=== PATIENT | male | born 1980 ===

== ENCOUNTER 2023-08-03 13:30 | Outpatient (AMB) | payer OTHER, SELFPAY ==
[2023-08-03 13:51] VITALS: BP 132/82; PULSE 76; O2SAT 98; BMI 24.7
--- NOTE | 2023-08-03 13:51 | MHC.PC.OV ---
Vital Signs 08/03/23 13:51 Height 5 ft 7 in Weight 157 lb 8 oz BMI 24.7 BP 132/82 Blood Pressure Location Lt brachial Position Sitting Pulse 76 Pulse Source Pulse Oximeter Pulse Oximetry (%) 98 Oxygen Delivery Method Room Air Intake Visit Reasons: New patient-Asthma Intake Note: Patient is a new patient here to establish care for Asthma. Medical record have been requested and will be mailed to the practice. Picture Framer Required: No Accompanied by: Self / Same As Patient Allergies No Known Allergies Allergy (Verified 06/01/24 13:34) Medication List - Last Reconciled 08/03/23 by Naeem Bird MD albuterol sulfate 90 mcg/actuation 2 puffs inhalation Q6H PRN buprenorphine-naloxone 4-1 mg (Suboxone) 1 film sublingual DAILY clonazepam 0.25 mg PO BEDTIME PRN fluoxetine 20 mg PO DAILY Tobacco use date assessed: 08/03/23 Dental Screening Dental Screen Date: 08/03/23 Did you have a dental visit in the last 12 months?: No Did you have a dental problem in the last 6 months where you did not have access to dental care?: No Was dental information given to patient?: Patient has dentist HPI New patient-Asthma HPI Details Patient comes in today to establish care - is a new patient to the practice His previous PCP was in [place] States that he has a history of asthma and need his Albuterol inhaler Rx refilled He has noticed that he's had to use his rescue inhaler more often than usual lately States that he feels okay otherwise He denies any headaches or dizziness Denies any chest pains No nausea/vomiting, no abdominal pain No change in bowel habits noted [facility] Medical History Vitamin D deficiency Pure hypercholesterolemia History of opioid abuse Anxiety Asthma Surgical History History of lung surgery History of facial surgery Family History Father Hepatitis C Liver failure Mother Anxiety and depression Smoker COPD (chronic obstructive pulmonary disease) Social History Housing: House Patient Tobacco Use Status: Former Tobacco user e-Cigarette/Vaping Use: Never Used service: No Current occupational status: employed and other (Self emplyed) Cognitive needs: No Hearing needs: No Vision needs: No Questionnaire PHQ-9 Over the last 2 weeks, how often have you been bothered by any of the following problems? 1. Little interest or pleasure in doing things: not at all 2. Feeling down, depressed, or hopeless: not at all 3. Trouble falling or staying asleep, or sleeping too much: not at all 4. Feeling tired or having little energy: not at all 5. Poor appetite or overeating: not at all 6. Feeling bad about yourself - or that you are a failure or have let yourself or your family down: not at all 7. Trouble concentrating on things, such as reading the newspaper or watching television: not at all 8. Moving or speaking so slowly that other people could have noticed. Or the opposite - being so fidgety or restless that you have been moving around a lot more than usual: not at all 9. Thoughts that you would be better off or of hurting yourself in some way: not at all Total score: 0 Depression Screening Interpretation: Negative Depression Screening Done: Yes 25098 - PHQ-9 Billing: Yes Source: Developed by Drs. Remington Romero, Krystal Yu, Jose Martínez and colleagues, with an educational cristina from [employer]. Thrive Questionnaire Date Thrive assessed: 08/03/23 I am a: Patient What is your living situation today?: I have a steady place to live Within the past 12 months, did the food you bought not last and you didn't have the money to get more?: Never true Within the past 12 months, did you worry whether your food would run out before you got money to buy more?: Never true Do you have trouble paying for medicines?: No Do you have trouble getting transportation to medical appointments?: No Do you have trouble paying your heating and electricity bill?: No Do you have trouble taking care of your child, family member or friend?: No Do you have trouble with day-to-day activities such as bathing, preparing meals, shopping, managing finances, etc.?: No Are you currently unemployed and looking for a job?: No Are you interested in more education?: No Please select the resources that you would like help with: None Currently or been in a relationship where the following occur: no concerns reported THRIVE Score: 0 AUDIT C Alcohol Use Questionnaire (AUDIT-C) 1. How often do you have a drink containing alcohol?: Never 3. How often do you have six or more drinks on one occasion?: Never Total Score: 0 Score Reviewed/Action Taken: Yes DASIA-7 AMB Questionnaire DASIA-7 Date DASIA - 7 assessed: 08/03/23 Feeling nervous, anxious, or on edge: 1 = Several days Not being able to stop or control worryin = Several days Worrying too much about different things: 1 = Several days Trouble relaxin = Several days Being so restless that it is hard to sit still: 1 = Several days Becoming easily annoyed or irritable: 1 = Several days Feeling afraid as if something awful might happen: 1 = Several days Total DASIA-7 score (0-4 normal; 5-9 mild; 10-14 moderate; 15-21 severe): 7 Source: Developed by Drs. Remington Romero, Krystal Yu, Jose Martínez and colleagues, with an educational cristina from [employer]. DASIA-7 Assessment Billing DASIA-7 Assessment Tool: DASIA-7 Assessment 57106 ACT Questionnaire In the past 4 weeks, how much of the time did your asthma keep you from getting as much done at work, school or at home?: None of the time During the past 4 weeks, how often have you had shortness of breath?: 1-2 times a week During the past 4 weeks, how often did your asthma symptoms wake you up at night or earlier than usual in the morning?: Not at all During the past 4 weeks, how often have you had to use your rescue inhaler or nebulizer medication?: 1-2 times a week How would you rate your asthma control during the past 4 weeks?: Well controlled Score: 20 Review of Systems Const Denies chills, Denies fatigue, Denies fever(s) and Denies headache(s) ENT Denies dysphagia, Denies dizziness, Denies otalgia, Denies headache(s), Denies neck pain, Denies odynophagia and Denies sore throat Card Denies chest pain, Denies palpitations and Reports dyspnea on exertion (mild) Resp Denies chest congestion, Denies cough, Reports dyspnea on exertion (mild) and Denies wheezing GI Denies abdominal pain, Denies constipation, Denies dysphagia, Denies heartburn, Denies diarrhea, Denies nausea, Denies odynophagia and Denies vomiting Denies difficulty urinating, Denies dysuria, Denies nocturia and Denies urinary frequency Musc Denies back pain and Denies neck pain Skin/Breast Denies rash Neuro Denies dizziness and Denies headache(s) Endo Denies fatigue and Denies palpitations Aller/Immun Denies wheezing Physical exam (Primary Care) Vital Signs: Last Vital Signs Pulse 76 08/03/23 13:51 BP 132/82 08/03/23 13:51 Pulse Ox 98 08/03/23 13:51 Oxygen Delivery Method Room Air 08/03/23 13:51 BMI result Body Mass Index 24.7 Tobacco/Smoking Status: Tobacco use Status Tobacco use date assessed 08/03/23 08/03/23 14:06 Patient Tobacco Use Status Former Tobacco user 08/03/23 14:36 e-Cigarette/Vaping Use Never Used 08/03/23 14:36 PHQ-9: PHQ-9 Score PHQ-9: Total score 0 08/03/23 14:38 Depression Screening Interpretation: Negative Thrive Assessment: Date of Thrive Assessment Date Thrive assessed 08/03/23 08/03/23 14:06 Currently or been in a relationship where the following occur: no concerns reported Const General: no acute distress and alert HENMT Ears: TM's normal bilaterally and EAC's normal Throat: Yes posterior oropharynx normal and Yes tonsils normal (no TP congestion) Neck Neck: Yes supple and No lymphadenopathy Thyroid: Thyroid normal Resp Auscultation: clear to auscultation bilaterally, no rales and no wheezes Cardio Rate: regular rate Rhythm: regular rhythm Heart sounds: no murmurs GI Palpation (GI): Soft to palpation and nontender Auscultation: normal bowel sounds General: Yes no CVA tenderness Back/Spine/Pelvis Back: no CVA tenderness Thoracic/Lumbar Spine: No lumbar spinal tenderness Skin Rashes: no rashes Extrem General: Yes no clubbing, cyanosis or edema Coding Level of Care Code New Pt Level 4 (62091) Diagnoses Mild intermittent asthma without complication J45.20 Asthma severity: mild Asthma persistence: intermittent Asthma complication type: uncomplicated History of opioid abuse F11.11 Anxiety F41.9 Additional Codes DASIA-7 Assessment Billing - DASIA-7 Assessment Tool: DASIA-7 Assessment 78728 ([id number])
== END 2023-08-03 14:44 | disposition home or self-care (01) ==
PROVIDERS: PCP Internal Medicine; Visit Provider Internal Medicine
DX: J45.20 Mild intermittent asthma, uncomplicated (principal); F11.11 Opioid abuse, in remission; F41.9 Anxiety disorder, unspecified
CPT/HCPCS: 99499

== ENCOUNTER 2023-11-24 11:23 | Outpatient (REF) | payer OTHER, SELFPAY ==
[2023-11-24 11:47] LABS: MANUAL DIFF FLAG NO
[2023-11-24 12:31] LABS: Basophils Absolute Auto 0.1 X10*3/uL (0.0-0.2); Basophils Percent Auto 0.7 % (0-2); Eosinophils Absolute Auto 0.3 X10*3/uL (0.0-0.4); Eosinophils Percent Auto 4.3 % (0-4); Hematocrit 43.4 % (42.0-52.0); Hemoglobin 14.6 g/dl (14.0-18.0); Imm Gran Abs Auto 0.08 X10*3/uL (0.00-0.03); Imm Gran Pct Auto 1.1 % (0.0-0.4); Lymphocytes Absolute Auto 2.7 X10*3/uL (1.2-4.9); Lymphocytes Percent Auto 35.6 % (20-40); Mean Corpuscular HGB Conc 33.6 g/dl (31.0-36.0); Mean Corpuscular Hemoglobin 31.9 pg (27.0-33.0); Mean Corpuscular Volume 94.8 fL (80.0-98.0); Monocytes Absolute Auto 0.7 X10*3/uL (0.1-1.2); Monocytes Percent Auto 9.7 % (2-11); Neutrophils Absolute Auto 3.6 x10*3/uL (2.0-8.3); Neutrophils Percent Auto 48.6 % (45-73); Platelet Count 459 X10*3/uL (160-400); Red Blood Count 4.58 X10*6/uL (4.60-5.80); Red Cell Distribution Width 12.5 % (11.0-16.0); White Blood Count 7.5 X10*3/uL (4.8-10.8)
[2023-11-24 12:50] LABS: Appearance Urine Clear; Color Urine Yellow; Glucose Urine UA Negative (Negative); Leukocyte Esterase Urine Negative (Negative); Nitrite Urine Negative (Negative); Specific Gravity - Urine 1.015 (1.005-1.025); Urine Blood Negative (Negative); Urine Ketones Negative (Negative); Urine Protein Negative (Neg-Trace)
[2023-11-24 13:03] LABS: Alanine Aminotransferase 22 U/L (0-40); Albumin Level 4.3 g/dL (3.5-5.0); Alkaline Phosphatase 54 U/L (39-117); Anion Gap 10 (12-20); Aspartate Amino Transferase 18 U/L (5-37); Bilirubin Total 0.4 mg/dL (0.0-1.0); Blood Urea Nitrogen 10 mg/dL (9-16); Calcium 9.7 mg/dL (8.4-10.2); Carbon Dioxide 31 mmol/L (22-29); Chloride 106 mmol/L (96-108); Cholesterol 232 mg/dL (<200); Estimated Glomerular Filt Rate > 60; Glucose Fasting 94 mg/dL (60-99); HDL Cholesterol 60 mg/dL (>40); LDL Cholesterol Calculated 158 mg/dL (<100); Sodium 142 mmol/L (135-145); Total Protein 7.4 g/dL (6.5-8.0); Triglycerides 72 mg/dL (<150)
[2023-11-24 13:17] LABS: TSH reflex Free T4 1.62 uIU/mL (0.32-4.0); Vitamin D 25-OH Total 29.9 ng/mL (>30)
== END 2023-11-24 11:24 | disposition home or self-care (01) ==
LOC: HO.LAB 11:23
PROVIDERS: PCP Internal Medicine; Visit Provider Internal Medicine
DX: Z00.00 Encounter for general adult medical examination without abnormal findings (principal); D64.9 Anemia, unspecified; E55.9 Vitamin D deficiency, unspecified; E78.00 Pure hypercholesterolemia, unspecified; R30.0 Dysuria
CPT/HCPCS: 36415; 80053; 80061; 81003; 82306; 84443; 85025

== ENCOUNTER 2023-11-30 12:28 | Outpatient (AMB) | payer OTHER, SELFPAY ==
[2023-11-30 12:32] VITALS: BP 144/92; PULSE 76; O2SAT 97; BMI 25.1
--- NOTE | 2023-11-30 12:32 | A.OFFPC_ITS ---
Vital Signs 11/30/23 12:32 Height 5 ft 7 in Weight 160 lb 6 oz BMI 25.1 BP 144/92 H Blood Pressure Location Lt brachial Position Sitting Pulse 76 Pulse Source Pulse Oximeter Pulse Oximetry (%) 97 Oxygen Delivery Method Room Air Intake Visit Reasons: Annual Exam Intake Note: Patient is here today for a physical. Software Support Specialist Required: No Accompanied by: Self / Same As Patient Allergies No Known Allergies Allergy (Unverified 11/30/23 12:53) Medication List - Last Reconciled 11/30/23 by Naeem Bird MD albuterol sulfate 90 mcg/actuation 2 puffs inhalation Q6H PRN buprenorphine-naloxone 4-1 mg (Suboxone) 1 film sublingual DAILY clonazepam 0.25 mg PO BEDTIME PRN fluoxetine 20 mg PO DAILY 90 days mometasone 100 mcg/actuation (Asmanex HFA) 2 puffs inhalation BID Tobacco use date assessed: 08/03/23 Dental Screening Dental Screen Date: 08/03/23 HPI Annual Exam HPI Details Patient comes in today for his annual physical examination States that he feels okay Denies any headaches or dizziness Denies any chest pains, no increased SOB No nausea/vomiting, no abdominal pain No change in bowel habits noted He denies any acute urinary symptoms He had his follow up labs done last week - to discuss his results [facility] Medical History (Updated 11/30/23 @ 13:00 by Naeem Bird MD) Vitamin D deficiency Pure hypercholesterolemia History of opioid abuse Anxiety Asthma Surgical History History of lung surgery History of facial surgery Family History Father Hepatitis C Liver failure Mother Anxiety and depression Smoker COPD (chronic obstructive pulmonary disease) Social History Housing: House Patient Tobacco Use Status: Former Tobacco user e-Cigarette/Vaping Use: Never Used service: No Current occupational status: employed and other (Self emplyed) Cognitive needs: No Hearing needs: No Vision needs: No Questionnaire Thrive Questionnaire Date Thrive assessed: 08/03/23 DASIA-7 AMB Questionnaire DASIA-7 Date DASIA - 7 assessed: 08/03/23 Source: Developed by Drs. Remington Romero, Krystal Yu, Jose Martínez and colleagues, with an educational cristina from [employer]. Review of Systems Const Denies chills, Denies fatigue, Denies fever(s), Denies headache(s), Denies malaise and Denies weakness Eyes Denies blurry vision, Denies change in vision, Denies irritation and Denies itchy eyes ENT Denies dysphagia, Denies dizziness, Denies otalgia, Denies headache(s), Denies nasal congestion, Denies neck pain, Denies odynophagia and Denies sore throat Card Denies chest pain, Denies rapid heart rate, Denies irregular heart rhythm, Denies palpitations and Denies dyspnea Resp Denies chest congestion, Denies cough, Denies dyspnea and Denies wheezing GI Denies abdominal pain, Denies bloating, Denies constipation, Denies dysphagia, Denies heartburn, Denies diarrhea, Denies nausea, Denies odynophagia and Denies vomiting Denies hematuria, Denies difficulty urinating, Denies dysuria, Denies urinary frequency and Denies urinary urgency Musc Denies back pain, Denies arthralgias, Denies joint swelling, Denies muscle weakness and Denies neck pain Skin/Breast Denies change in pigmentation, Denies lesions, Denies rash and Denies unusual bruising Neuro Denies dizziness, Denies headache(s), Denies paresthesias and Denies weakness Endo Denies fatigue and Denies palpitations Aller/Immun Denies itchy eyes and Denies wheezing Physical exam (Primary Care) Vital Signs: Last Vital Signs Pulse 76 11/30/23 12:32 BP 144/92 H 11/30/23 12:32 Pulse Ox 97 11/30/23 12:32 Oxygen Delivery Method Room Air 11/30/23 12:32 BMI result Body Mass Index 25.1 Tobacco/Smoking Status: Tobacco use Status Tobacco use date assessed 08/03/23 11/30/23 12:35 Patient Tobacco Use Status Former Tobacco user 11/30/23 12:35 e-Cigarette/Vaping Use Never Used 11/30/23 12:35 Thrive Assessment: Date of Thrive Assessment Date Thrive assessed 08/03/23 11/30/23 12:35 Const General: no acute distress, alert and awake Orientation/consciousness: patient oriented x3 HENIL Head: Yes normocephalic and Yes atraumatic Ears: external ears normal, TM's normal bilaterally and EAC's normal General nose exam: No nasal discharge present Face and sinus: Yes normal facial exam and Yes sinuses nontender Teeth and gingiva: dentition normal Throat: Yes posterior oropharynx normal and Yes tonsils normal (no TP congestion) Eyes Eyelids: Yes eyelids normal Conjunctivae: conjunctivae normal Pupils: Equal, round and reactive pupils present EOM: EOMs intact bilaterally Neck Neck: Yes no lymphadenopathy and Yes supple Thyroid: Thyroid normal Resp Auscultation: clear to auscultation bilaterally, no rales and no wheezes Cardio Rate: regular rate Rhythm: regular rhythm Heart sounds: no murmurs GI Palpation (GI): Soft to palpation, nontender and No hepatosplenomegaly present Auscultation: normal bowel sounds General: Yes no CVA tenderness Back/Spine/Pelvis Back: no CVA tenderness Thoracic/Lumbar Spine: thoracic and lumbar spine normal to inspection Skin Lesions: no lesions Rashes: no rashes Neuro General: patient oriented x3, moves all extremities, no focal motor deficits and CN's II-XI intact bilaterally Cranial nerves: Yes Equal, round and reactive pupils present Cognition (Neuro): normal cognition Gait exam (Neuro): Normal gait present Extrem General: Yes no clubbing, cyanosis or edema Results Reviewed Results Reviewed: Laboratory Tests 11/24/23 11/24/23 11:46 12:20 WBC 7.5 Hgb 14.6 Hct 43.4 Plt Count 459 H Sodium 142 Potassium 5.0 Creatinine 0.86 Estimated GFR > 60 Fasting Glucose 94 Calcium 9.7 AST 18 ALT 22 Triglycerides 72 Cholesterol 232 H LDL Cholesterol, Calc 158 H HDL Cholesterol 60 25-OH Vitamin D Total 29.9 L TSH 1.62 Ur Specific [place] 1.015 Urine Protein Negative Urine Glucose (UA) Negative Urine Blood Negative Urine Nitrite Negative Ur Leukocyte Esterase Negative Assessment and Plan Assessment & Plan (1) Annual physical exam: Code(s): Z00.00 - Encounter for general adult medical examination without abnormal findings Plan: Results of his labs done last week reviewed and discussed with patient (2) Pure hypercholesterolemia: Code(s): E78.00 - Pure hypercholesterolemia, unspecified Plan: Patient is advised that his total and LDL cholesterol levels were elevated on his recent labs Discussed low cholesterol diet Will have him recheck his labs and fasting lipids in 6 months for follow up (3) Asthma: Code(s): J45.909 - Unspecified asthma, uncomplicated Qualifiers: Asthma severity: mild Asthma persistence: intermittent Asthma complication type: uncomplicated Qualified Code(s): J45.20 - Mild intermittent asthma, uncomplicated Plan: Continue Albuterol HFA 1 to 2 inhalations Q 6 hours PRN He was on Asmanex HFA 100 mcg 2 inhalations BID previously but he stopped using it as it was supposedly making his throat itch, and he prefers not to use any other inhaler if he can avoid it States that he uses his Albuterol inhaler only a couple of times a week now Will have him put his Asmanex aside for now - advised that if he does not need to use his Albuterol inhaler more than 2 to 3 times a week, then he does not need to be on a controller Have advised patient to call back IF he starts experiencing more difficulty with his breathing at any time (4) Vitamin D deficiency: Code(s): E55.9 - Vitamin D deficiency, unspecified Plan: He is also advised that his Vitamin D level was low on his recent labs Will start him on Vitamin D3 1000 units QD (5) History of opioid abuse: Code(s): F11.11 - Opioid abuse, in remission Plan: Continue Suboxone 4-1 mg 1 film SL QD Follow up with [facility] as scheduled (6) Anxiety: Code(s): F41.9 - Anxiety disorder, unspecified Plan: Continue Fluoxetine 20 mg QD and Clonazepam 0.25 mg Q HS PRN Follow up with psychiatry as scheduled Plan Follow up in 6 months Orders: Orders Lipid Panel 6 Months E78.00 - Pure hypercholesterolemia, unspecified Comprehensive Zenia. Panel Fast 6 Months E78.00 - Pure hypercholesterolemia, unspecified Medications: New cholecalciferol (vitamin D3) 25 mcg PO DAILY 90 days 90 caps 3RF E55.9 - Vitamin D deficiency, unspecified Discontinued mometasone 100 mcg/actuation (Asmanex HFA) Discontinued Reason: Doctor's Order 2 puffs inhalation BID 13 grams 3RF Coding Level of Care Code Est Pt Prev Care 40-64y(51934) Diagnoses Annual physical exam Z00.00 Pure hypercholesterolemia E78.00 Mild intermittent asthma without complication J45.20 Asthma severity: mild Asthma persistence: intermittent Asthma complication type: uncomplicated Vitamin D deficiency E55.9 History of opioid abuse F11.11 Anxiety F41.9
== END 2023-11-30 13:15 | disposition home or self-care (01) ==
PROVIDERS: PCP Internal Medicine; Visit Provider Internal Medicine
DX: Z00.00 Encounter for general adult medical examination without abnormal findings (principal); F11.11 Opioid abuse, in remission; E78.00 Pure hypercholesterolemia, unspecified; J45.20 Mild intermittent asthma, uncomplicated; E55.9 Vitamin D deficiency, unspecified; F41.9 Anxiety disorder, unspecified
CPT/HCPCS: 99396

== ENCOUNTER 2024-06-01 11:06 | Outpatient (REF) | payer OTHER, SELFPAY ==
[2024-06-01 11:33] LABS: Alanine Aminotransferase 41 U/L (0-40); Albumin Level 4.3 g/dL (3.5-5.0); Alkaline Phosphatase 54 U/L (39-117); Anion Gap 11 (12-20); Aspartate Amino Transferase 28 U/L (5-37); Bilirubin Total 0.4 mg/dL (0.0-1.0); Blood Urea Nitrogen 16 mg/dL (9-16); Carbon Dioxide 27 mmol/L (22-29); Chloride 108 mmol/L (96-108); Cholesterol 233 mg/dL (<200); Estimated Glomerular Filt Rate > 60; Glucose Fasting 101 mg/dL (60-99); HDL Cholesterol 60 mg/dL (>40); LDL Cholesterol Calculated 159 mg/dL (<100); Potassium 4.6 mmol/L (3.3-5.1); Sodium 141 mmol/L (135-145); Total Protein 7.7 g/dL (6.5-8.0); Triglycerides 72 mg/dL (<150)
== END 2024-06-01 11:07 | disposition home or self-care (01) ==
LOC: HO.LAB 11:06
PROVIDERS: PCP Internal Medicine; Visit Provider Internal Medicine
DX: E78.00 Pure hypercholesterolemia, unspecified (principal); R03.0 Elevated blood-pressure reading, without diagnosis of hypertension; E55.9 Vitamin D deficiency, unspecified; J45.20 Mild intermittent asthma, uncomplicated; F11.21 Opioid dependence, in remission; F41.9 Anxiety disorder, unspecified; Z79.899 Other long term (current) drug therapy
CPT/HCPCS: 36415; 80053; 80061; 96127

== ENCOUNTER 2024-06-01 12:47 | Outpatient (AMB) | payer OTHER, SELFPAY ==
[2024-06-01 12:56] VITALS: BP 144/98; PULSE 78; O2SAT 98; BMI 25.8
--- NOTE | 2024-06-01 12:56 | A.OFFPC_ITS ---
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 Accompanied by: Self / Same As Patient Allergies No Known Allergies Allergy (Verified 06/01/24 13:34) Medication List - Last Reconciled 06/01/24 by Naeem Bird MD albuterol sulfate 90 mcg/actuation 2 puffs inhalation Q6H PRN buprenorphine-naloxone 4-1 mg (Suboxone) 0.25 film sublingual DAILY clonazepam 0.25 mg PO BEDTIME PRN fluoxetine 20 mg PO DAILY 90 days Tobacco use date assessed: 06/01/24 Dental Screening Dental Screen Date: 06/01/24 Did you have a dental visit in the last 12 months?: Yes Did you have a dental problem in the last 6 months where you did not have access to dental care?: No Was dental information given to patient?: Patient has dentist HPI hyperlipidemia, asthma HPI Details Patient comes in today for his follow up visit States that he is still experiencing occasional discomfort in his left shoulder at times, especially if he is working out States that he feels okay otherwise Notes that he has been working out at his local gym regularly for a while now and has made what he thinks are positive changes to his diet over the past few weeks Notes that he has also included more proteins in his diet but admits to drinking a lot of milk and eating more dairy products lately to try to increase his dietary protein content He denies any headaches or dizziness Denies any chest pains, no increased SOB No nausea/vomiting, no abdominal pain No change in bowel habits noted He had his follow up labs done earlier today - to discuss his results [facility] Medical History Vitamin D deficiency Pure hypercholesterolemia History of opioid abuse Anxiety Asthma Surgical History History of lung surgery History of facial surgery Family History Father Hepatitis C Liver failure Mother Anxiety and depression Smoker COPD (chronic obstructive pulmonary disease) Social History Housing: House Patient Tobacco Use Status: Former Tobacco user e-Cigarette/Vaping Use: Never Used service: No Current occupational status: employed and other (Self emplyed) Cognitive needs: No Hearing needs: No Vision needs: No Questionnaire PHQ-9 Over the last 2 weeks, how often have you been bothered by any of the following problems? 1. Little interest or pleasure in doing things: not at all 2. Feeling down, depressed, or hopeless: not at all 3. Trouble falling or staying asleep, or sleeping too much: not at all 4. Feeling tired or having little energy: not at all 5. Poor appetite or overeating: not at all 6. Feeling bad about yourself - or that you are a failure or have let yourself or your family down: not at all 7. Trouble concentrating on things, such as reading the newspaper or watching television: not at all 8. Moving or speaking so slowly that other people could have noticed. Or the opposite - being so fidgety or restless that you have been moving around a lot more than usual: not at all 9. Thoughts that you would be better off or of hurting yourself in some way: not at all Total score: 0 Depression Screening Interpretation: Negative Depression Screening Done: Yes 72189 - PHQ-9 Billing: Yes Source: Developed by Drs. Remington Romero, Krystal Yu, Jose Martínez and colleagues, with an educational cristina from [employer]. Thrive Questionnaire Date Thrive assessed: 06/01/24 I am a: Patient What is your living situation today?: I have a steady place to live Within the past 12 months, did the food you bought not last and you didn't have the money to get more?: Never true Within the past 12 months, did you worry whether your food would run out before you got money to buy more?: Never true Do you have trouble paying for medicines?: No Do you have trouble getting transportation to medical appointments?: No Do you have trouble paying your heating and electricity bill?: No Do you have trouble taking care of your child, family member or friend?: No Do you have trouble with day-to-day activities such as bathing, preparing meals, shopping, managing finances, etc.?: No Are you currently unemployed and looking for a job?: No Are you interested in more education?: No Please select the resources that you would like help with: None Currently or been in a relationship where the following occur: No concerns reported THRIVE Score: 0 AUDIT C Alcohol Use Questionnaire (AUDIT-C) 1. How often do you have a drink containing alcohol?: Never 3. How often do you have six or more drinks on one occasion?: Never Total Score: 0 Score Reviewed/Action Taken: Yes DASIA-7 AMB Questionnaire DASIA-7 Date DASIA - 7 assessed: 06/01/24 Feeling nervous, anxious, or on edge: 0 = Not at all Not being able to stop or control worryin = Not at all Worrying too much about different things: 0 = Not at all Trouble relaxin = Not at all Being so restless that it is hard to sit still: 0 = Not at all Becoming easily annoyed or irritable: 0 = Not at all Feeling afraid as if something awful might happen: 0 = Not at all Total DASIA-7 score (0-4 normal; 5-9 mild; 10-14 moderate; 15-21 severe): 0 Source: Developed by Drs. Remington Romero, Krystal Yu, Jose Martínez and colleagues, with an educational cristina from [employer]. Review of Systems Const Denies chills, Denies fatigue, Denies fever(s) and Denies headache(s) ENT Denies dysphagia, Denies dizziness, Denies otalgia, Denies headache(s), Denies neck pain, Denies odynophagia and Denies sore throat Card Denies chest pain, Denies irregular heart rhythm, Denies palpitations and Denies dyspnea Resp Denies chest congestion, Denies cough and Denies dyspnea GI Denies abdominal pain, Denies constipation, Denies dysphagia, Denies heartburn, Denies diarrhea, Denies nausea, Denies odynophagia and Denies vomiting Denies difficulty urinating, Denies dysuria and Denies urinary frequency Musc Denies back pain, Denies arthralgias (but (+) left shoulder discomfort at times) and Denies neck pain Skin/Breast Denies rash Neuro Denies dizziness, Denies headache(s) and Denies paresthesias Endo Denies fatigue and Denies palpitations Physical exam (Primary Care) Vital Signs: Last Vital Signs Pulse 78 06/01/24 12:56 BP 160/98 H 06/01/24 13:41 Pulse Ox 98 06/01/24 12:56 Oxygen Delivery Method Room Air 06/01/24 12:56 BMI result Body Mass Index 25.8 Tobacco/Smoking Status: Tobacco use Status Tobacco use date assessed 06/01/24 06/01/24 13:03 Patient Tobacco Use Status Former Tobacco user 06/01/24 13:03 e-Cigarette/Vaping Use Never Used 06/01/24 13:03 PHQ-9: PHQ-9 Score PHQ-9: Total score 0 06/01/24 13:43 Depression Screening Interpretation: Negative Thrive Assessment: Date of Thrive Assessment Date Thrive assessed 06/01/24 06/01/24 13:03 Currently or been in a relationship where the following occur: No concerns reported Const General: no acute distress and alert HENMT Ears: TM's normal bilaterally and EAC's normal Throat: Yes posterior oropharynx normal and Yes tonsils normal (no TP congestion) Neck Neck: Yes supple and No lymphadenopathy Thyroid: Thyroid normal Resp Auscultation: clear to auscultation bilaterally, no rales and no wheezes Cardio Rate: regular rate Rhythm: regular rhythm Heart sounds: no murmurs GI Palpation (GI): Soft to palpation and nontender Auscultation: normal bowel sounds General: Yes no CVA tenderness Back/Spine/Pelvis Back: no CVA tenderness Skin Rashes: no rashes Extrem General: Yes no clubbing, cyanosis or edema Left upper extremity: shoulder/upper arm Details: tenderness (mild - more of a discomfort often after working out) Location: of the A-C joint Results Reviewed Results Reviewed: Laboratory Tests 06/01/24 11:10 Sodium 141 Potassium 4.6 Creatinine 0.83 Estimated GFR > 60 Fasting Glucose 101 H Calcium 9.0 D AST 28 ALT 41 H Triglycerides 72 Cholesterol 233 H LDL Cholesterol, Calc 159 H HDL Cholesterol 60 Coding Level of Care Code Est Pt Level 4 (91415) Diagnoses Pure hypercholesterolemia E78.00 Elevated blood pressure reading R03.0 Vitamin D deficiency E55.9 Mild intermittent asthma without complication J45.20 Asthma complication type: uncomplicated Asthma persistence: intermittent Asthma severity: mild History of opioid abuse F11.11 Anxiety F41.9 Additional Codes PHQ-9 - 97152 - PHQ-9 Billing: Yes ([id number]) Assessment & Plan Assessment & Plan (1) Pure hypercholesterolemia: Code(s): E78.00 - Pure hypercholesterolemia, unspecified Category: Medical Plan: Results of his labs done earlier this morning reviewed and discussed with patient - he is advised that his cholesterol levels remain elevated Reinforced low cholesterol diet Will recheck his labs and fasting lipids in 3 months for follow up (2) Elevated blood pressure reading: Code(s): R03.0 - Elevated blood-pressure reading, without diagnosis of hypertension Category: Medical Plan: Have advised patient that his systolic BP should be around 120 mm or lower to be considered normal Discussed low sodium diet Patient admits that he has been taking some high protein shakes and body- building supplements lately - have advised him that these may contain ingredients that can affect his blood pressure so he needs to look at these more closely before continuing on them He is instructed to continue monitoring his blood pressure regularly (3) Vitamin D deficiency: Code(s): E55.9 - Vitamin D deficiency, unspecified Category: Medical Plan: Continue Vitamin D3 1000 units QD Will recheck his Vitamin D level in 3 months for follow up (4) Asthma: Code(s): J45.909 - Unspecified asthma, uncomplicated Category: Medical Qualifiers: Asthma complication type: uncomplicated Asthma persistence: intermittent Asthma severity: mild Qualified Code(s): J45.20 - Mild intermittent asthma, uncomplicated Plan: Controlled Continue Albuterol HFA 1 to 2 inhalations Q 6 hours PRN (5) History of opioid abuse: Code(s): F11.11 - Opioid abuse, in remission Category: Medical Plan: Continue Suboxone 4-1 mg 0.25 film SL QD - states that he is actively trying to wean himself off Suboxone currently Follow up with [facility] as scheduled (6) Anxiety: Code(s): F41.9 - Anxiety disorder, unspecified Category: Medical Plan: Continue Fluoxetine 20 mg QD and Clonazepam 0.25 mg Q HS PRN Follow up with psychiatry as scheduled Plan Follow up in 3 months Orders: Orders Comprehensive [place]. Panel Fast 3 Months E78.00 - Pure hypercholesterolemia, unspecified Lipid Panel 3 Months E78.00 - Pure hypercholesterolemia, unspecified Hemoglobin A1c 3 Months E11.9 - Type 2 diabetes mellitus without complications UA CC w/rflx Micro + Cult 3 Months R30.0 - Dysuria Complete Blood Count Auto Diff 3 Months D64.9 - Anemia, unspecified TSH reflex Free T4 3 Months E78.00 - Pure hypercholesterolemia, unspecified
[2024-06-01 13:41] VITALS: BP 160/98
== END 2024-06-01 13:51 | disposition home or self-care (01) ==
PROVIDERS: PCP Internal Medicine; Visit Provider Internal Medicine
DX: E78.00 Pure hypercholesterolemia, unspecified (principal); F11.11 Opioid abuse, in remission; R03.0 Elevated blood-pressure reading, without diagnosis of hypertension; E55.9 Vitamin D deficiency, unspecified; J45.20 Mild intermittent asthma, uncomplicated; F41.9 Anxiety disorder, unspecified

== ENCOUNTER 2024-08-30 10:45 | Outpatient (REF) | payer OTHER, SELFPAY ==
[2024-08-30 11:01] LABS: MANUAL DIFF FLAG NO
[2024-08-30 11:32] LABS: Basophils Percent Auto 0.5 % (0-2); Eosinophils Absolute Auto 0.1 X10*3/uL (0.0-0.4); Eosinophils Percent Auto 1.5 % (0-4); Hematocrit 46.6 % (42.0-52.0); Hemoglobin 15.8 g/dl (14.0-18.0); Imm Gran Abs Auto 0.04 X10*3/uL (0.00-0.03); Imm Gran Pct Auto 0.5 % (0.0-0.4); Lymphocytes Percent Auto 25.2 % (20-40); Mean Corpuscular HGB Conc 33.9 g/dl (31.0-36.0); Mean Corpuscular Hemoglobin 31.9 pg (27.0-33.0); Mean Platelet Volume 9.3 fL (9.4-12.4); Monocytes Absolute Auto 0.9 X10*3/uL (0.1-1.2); Monocytes Percent Auto 11.3 % (2-11); Neutrophils Absolute Auto 4.8 x10*3/uL (2.0-8.3); Platelet Count 461 X10*3/uL (160-400); Red Blood Count 4.96 X10*6/uL (4.60-5.80); Red Cell Distribution Width 12.1 % (11.0-16.0); White Blood Count 7.9 X10*3/uL (4.8-10.8)
[2024-08-30 11:44] LABS: Appearance Urine Clear; Color Urine Yellow; Glucose Urine UA Negative (Negative); Leukocyte Esterase Urine Negative (Negative); Nitrite Urine Negative (Negative); Urine Blood Negative (Negative); Urine Ketones Negative (Negative); Urine Protein Negative (Neg-Trace)
[2024-08-30 11:51] LABS: Estimated Average Glucose 111 mg/dL; Hemoglobin A1C 151.4691 umol/L; Hemoglobin A1c % 5.5 % (<6.0); Total Hemoglobin (HGBA1C) 4090.3179 umol/L
[2024-08-30 14:17] LABS: Alanine Aminotransferase 34 U/L (0-40); Albumin Level 4.1 g/dL (3.5-5.0); Anion Gap 13 (12-20); Aspartate Amino Transferase 26 U/L (5-37); Bilirubin Total 0.3 mg/dL (0.0-1.0); Blood Urea Nitrogen 18 mg/dL (9-16); Calcium 8.9 mg/dL (8.4-10.2); Carbon Dioxide 28 mmol/L (22-29); Chloride 106 mmol/L (96-108); Cholesterol 198 mg/dL (<200); Estimated Glomerular Filt Rate > 60; Glucose Fasting 93 mg/dL (60-99); HDL Cholesterol 45 mg/dL (>40); LDL Cholesterol Calculated 140 mg/dL (<100); Potassium 4.6 mmol/L (3.3-5.1); Sodium 142 mmol/L (135-145); Triglycerides 65 mg/dL (<150)
[2024-08-30 14:26] LABS: TSH reflex Free T4 1.73 uIU/mL (0.32-4.0)
[2024-08-30 18:21] LABS: Alkaline Phosphatase 49 U/L (39-117)
== END 2024-08-30 10:46 | disposition home or self-care (01) ==
LOC: HO.LAB 10:45
PROVIDERS: PCP Internal Medicine; Visit Provider Internal Medicine
DX: E78.00 Pure hypercholesterolemia, unspecified (principal); E11.9 Type 2 diabetes mellitus without complications; R30.0 Dysuria; D64.9 Anemia, unspecified
CPT/HCPCS: 36415; 80053; 80061; 81003; 83036; 84443; 85025

== ENCOUNTER 2024-08-31 12:27 | Outpatient (AMB) | payer OTHER, SELFPAY ==
[2024-08-31 12:32] VITALS: BP 142/100; PULSE 88; O2SAT 98; BMI 25.7
--- NOTE | 2024-08-31 12:32 | MHC.PC.OV ---
Vital Signs 08/31/24 12:32 Height 5 ft 7 in Weight 164 lb 4 oz BMI 25.7 BP 142/100 H Blood Pressure Location Lt brachial Position Sitting Pulse 88 Pulse Source Pulse Oximeter Pulse Oximetry (%) 98 Oxygen Delivery Method Room Air Intake Visit Reasons: 3 Months f/u Order Processing Manager Required: No Accompanied by: Self / Same As Patient Allergies No Known Allergies Allergy (Verified 08/31/24 12:46) Medication List - Last Reconciled 08/31/24 by Naeem Bird MD albuterol sulfate 90 mcg/actuation 2 puffs inhalation Q6H PRN clonidine HCl 0.1 mg PO BEDTIME fluoxetine 20 mg PO DAILY 90 days ibuprofen-diphenhydramine HCl 200-25 mg (Ibuprofen PM) 1 cap PO BEDTIME PRN Tobacco use date assessed: 08/31/24 Dental Screening Dental Screen Date: 08/31/24 Did you have a dental visit in the last 12 months?: Yes Did you have a dental problem in the last 6 months where you did not have access to dental care?: No Was dental information given to patient?: Patient has dentist HPI 3 Months f/u HPI Details Patient comes in today for his follow up visit States that he still has occasional discomfort in his left shoulder, especially if he is working out, but feels okay otherwise and has no other acute issues or complaints He denies any headaches or dizziness Denies any chest pains, no increased SOB No nausea/vomiting, no abdominal pain No change in bowel habits noted States that he has been able to wean himself off his Suboxone about 1.5 weeks ago and has not had any withdrawal symptoms or cravings so far He also stopped taking his Clonazepam a while ago and has been doing well without it Adds that he's had some issues with restless legs at night for a while now - thinks that he may have restless leg syndrome States that he just keep forgetting to mention that during his past appointments He had his follow up labs done yesterday - to discuss his results States that he takes some OTC supplements regularly, which includes: Arginine, Turmeric, Deca-Durabolin [facility] Medical History Vitamin D deficiency Pure hypercholesterolemia History of opioid abuse Anxiety Asthma Surgical History History of lung surgery History of facial surgery Family History Father Hepatitis C Liver failure Mother Anxiety and depression Smoker COPD (chronic obstructive pulmonary disease) Social History Housing: House Patient Tobacco Use Status: Former Tobacco user e-Cigarette/Vaping Use: Never Used service: No Current occupational status: employed and other (Self emplyed) Cognitive needs: No Hearing needs: No Vision needs: No Questionnaire PHQ-9 Over the last 2 weeks, how often have you been bothered by any of the following problems? 1. Little interest or pleasure in doing things: not at all 2. Feeling down, depressed, or hopeless: not at all 3. Trouble falling or staying asleep, or sleeping too much: nearly every day 4. Feeling tired or having little energy: not at all 5. Poor appetite or overeating: not at all 6. Feeling bad about yourself - or that you are a failure or have let yourself or your family down: not at all 7. Trouble concentrating on things, such as reading the newspaper or watching television: not at all 8. Moving or speaking so slowly that other people could have noticed. Or the opposite - being so fidgety or restless that you have been moving around a lot more than usual: not at all 9. Thoughts that you would be better off or of hurting yourself in some way: not at all Total score: 3 Depression Screening Interpretation: Negative Depression Screening Done: Yes 51569 - PHQ-9 Billing: Yes Source: Developed by Drs. Remington Romero, Krystal Yu, Jose Martínez and colleagues, with an educational cristina from [employer]. Thrive Questionnaire Date Thrive assessed: 08/31/24 I am a: Patient What is your living situation today?: I have a steady place to live Within the past 12 months, did the food you bought not last and you didn't have the money to get more?: Often true Within the past 12 months, did you worry whether your food would run out before you got money to buy more?: Never true Do you have trouble paying for medicines?: No Do you have trouble getting transportation to medical appointments?: No Do you have trouble paying your heating and electricity bill?: No Do you have trouble taking care of your child, family member or friend?: No Do you have trouble with day-to-day activities such as bathing, preparing meals, shopping, managing finances, etc.?: No Are you currently unemployed and looking for a job?: No Are you interested in more education?: No Please select the resources that you would like help with: None Currently or been in a relationship where the following occur: No concerns reported THRIVE Score: 1 AUDIT C Alcohol Use Questionnaire (AUDIT-C) 1. How often do you have a drink containing alcohol?: Never 3. How often do you have six or more drinks on one occasion?: Never Total Score: 0 Score Reviewed/Action Taken: Yes DASIA-7 AMB Questionnaire DASIA-7 Date DASIA - 7 assessed: 08/31/24 Feeling nervous, anxious, or on edge: 1 = Several days Not being able to stop or control worryin = Several days Worrying too much about different things: 1 = Several days Trouble relaxin = Several days Being so restless that it is hard to sit still: 1 = Several days Becoming easily annoyed or irritable: 0 = Not at all Feeling afraid as if something awful might happen: 0 = Not at all Total DASIA-7 score (0-4 normal; 5-9 mild; 10-14 moderate; 15-21 severe): 5 Source: Developed by Drs. Remington Romero, Krystal Yu, Jose Martínez and colleagues, with an educational cristina from [employer]. Review of Systems Const Denies chills, Denies fatigue, Denies fever(s) and Denies headache(s) ENT Denies dysphagia, Denies dizziness, Denies otalgia, Denies headache(s), Denies neck pain, Denies odynophagia and Denies sore throat Card Denies chest pain, Denies irregular heart rhythm, Denies palpitations and Denies dyspnea Resp Denies chest congestion, Denies cough and Denies dyspnea GI Denies abdominal pain, Denies constipation, Denies dysphagia, Denies heartburn, Denies diarrhea, Denies nausea, Denies odynophagia and Denies vomiting Denies difficulty urinating, Denies dysuria and Denies urinary frequency Musc Denies back pain, Denies arthralgias (but (+) left shoulder discomfort at times) and Denies neck pain Skin/Breast Denies rash Neuro Denies dizziness, Denies headache(s), Reports restless legs (mostly at night) and Denies paresthesias Endo Denies fatigue and Denies palpitations Physical exam (Primary Care) Vital Signs: Oxygen Delivery Method Room Air 08/31/24 12:32 Tobacco/Smoking Status: Tobacco use Status Tobacco use date assessed 06/01/24 08/31/24 12:36 Patient Tobacco Use Status Former Tobacco user 08/31/24 12:36 e-Cigarette/Vaping Use Never Used 08/31/24 12:36 PHQ-9: PHQ-9 Score PHQ-9: Total score 3 08/31/24 12:36 Depression Screening Interpretation: Negative Thrive Assessment: Date of Thrive Assessment Date Thrive assessed 06/01/24 08/31/24 12:36 Currently or been in a relationship where the following occur: No concerns reported Const General: no acute distress and alert HENMT Ears: TM's normal bilaterally and EAC's normal Throat: Yes posterior oropharynx normal and Yes tonsils normal (no TP congestion) Neck Neck: Yes supple and No lymphadenopathy Thyroid: Thyroid normal Resp Auscultation: clear to auscultation bilaterally, no rales and no wheezes Cardio Rate: regular rate Rhythm: regular rhythm Heart sounds: no murmurs GI Palpation (GI): Soft to palpation and nontender Auscultation: normal bowel sounds General: Yes no CVA tenderness Back/Spine/Pelvis Back: no CVA tenderness Skin Rashes: no rashes Extrem General: Yes no clubbing, cyanosis or edema Left upper extremity: shoulder/upper arm Details: tenderness (mild - more of a discomfort often after working out) Location: of the A-C joint Results Reviewed Results Reviewed: Laboratory Tests 08/30/24 08/30/24 10:51 10:54 WBC 7.9 Hgb 15.8 Hct 46.6 Plt Count 461 H Sodium 142 Potassium 4.6 Creatinine 0.90 Estimated GFR > 60 Fasting Glucose 93 Hemoglobin A1c % 5.5 Calcium 8.9 AST 26 ALT 34 Triglycerides 65 Cholesterol 198 LDL Cholesterol, Calc 140 H HDL Cholesterol 45 TSH 1.73 Ur Specific [place] 1.020 Urine Protein Negative Urine Glucose (UA) Negative Urine Blood Negative Urine Nitrite Negative Ur Leukocyte Esterase Negative Coding Level of Care Code Est Pt Level 4 (32330) Diagnoses Pure hypercholesterolemia E78.00 Elevated blood pressure reading R03.0 Vitamin D deficiency E55.9 Mild intermittent asthma without complication J45.20 Asthma severity: mild Asthma persistence: intermittent Asthma complication type: uncomplicated History of opioid abuse F11.11 Restless legs G25.81 Anxiety F41.9 Additional Codes PHQ-9 - 26791 - PHQ-9 Billing: Yes ([id number]) Assessment & Plan Assessment & Plan (1) Pure hypercholesterolemia: Code(s): E78.00 - Pure hypercholesterolemia, unspecified Category: Medical Plan: Results of his labs done yesterday reviewed and discussed with patient - he is advised that his cholesterol levels remain elevated but have improved slightly from previous Reinforced low cholesterol diet Will recheck his labs and fasting lipids in 4 months for follow up (2) Elevated blood pressure reading: Code(s): R03.0 - Elevated blood-pressure reading, without diagnosis of hypertension Category: Medical Plan: His BP is still elevated today - have advised patient that his systolic BP should be around 120 mm or lower to be considered normal Reinforced low sodium diet Patient is still drinking some high protein shakes and body-building supplements - he has been advised him that these may contain ingredients that can affect his blood pressure so he needs to look at these more closely before continuing on them He is reminded to continue monitoring his blood pressure regularly (3) Vitamin D deficiency: Code(s): E55.9 - Vitamin D deficiency, unspecified Category: Medical Plan: Continue Vitamin D3 1000 units QD Will recheck his Vitamin D level in 4 months for follow up (4) Asthma: Code(s): J45.909 - Unspecified asthma, uncomplicated Category: Medical Qualifiers: Asthma severity: mild Asthma persistence: intermittent Asthma complication type: uncomplicated Qualified Code(s): J45.20 - Mild intermittent asthma, uncomplicated Plan: Controlled Continue Albuterol HFA 1 to 2 inhalations Q 6 hours PRN (5) History of opioid abuse: Code(s): F11.11 - Opioid abuse, in remission Category: Medical Plan: He was on Suboxone 4-1 mg 0.25 film SL QD but states that he has been able to wean himself off Suboxone about 1/5 weeks ago and has not had any problems/symptoms so far Follow up with [facility] as scheduled/as needed (6) Restless legs: Code(s): G25.81 - Restless legs syndrome Category: Medical Plan: Will start patient on a trial of Ropinirole 0.25 mg Q HS PRN (7) Anxiety: Code(s): F41.9 - Anxiety disorder, unspecified Category: Medical Plan: Continue Fluoxetine 20 mg QD States that he also stopped taking his Clonazepam 0.25 mg a while ago and has not had any problems so far without it Follow up with psychiatry as scheduled Plan Follow up in 4 months Orders: Orders Complete Blood Count Auto Diff 4 Months D64.9 - Anemia, unspecified Lipid Panel 4 Months E78.00 - Pure hypercholesterolemia, unspecified Vitamin D 25-OH Total 4 Months E55.9 - Vitamin D deficiency, unspecified Comprehensive [place]. Panel Fast 4 Months E78.00 - Pure hypercholesterolemia, unspecified UA CC w/rflx Micro + Cult 4 Months R30.0 - Dysuria Medications: New ropinirole administer 1-3 hours before bedtime 0.25 mg PO BEDTIME 30 days 30 tabs 3RF
== END 2024-08-31 13:17 | disposition home or self-care (01) ==
LOC: HO.HMCH 12:28
PROVIDERS: PCP Internal Medicine; Visit Provider Internal Medicine
DX: E78.00 Pure hypercholesterolemia, unspecified (principal); R03.0 Elevated blood-pressure reading, without diagnosis of hypertension; F11.11 Opioid abuse, in remission; E55.9 Vitamin D deficiency, unspecified; J45.20 Mild intermittent asthma, uncomplicated; G25.81 Restless legs syndrome; F41.9 Anxiety disorder, unspecified

== ENCOUNTER → 2024-08-31 12:27 | Outpatient (BNVA) | payer OTHER, SELFPAY | PROVIDERS: PCP Internal Medicine; Visit Provider Internal Medicine | DX: E78.00 Pure hypercholesterolemia, unspecified (principal); R03.0 Elevated blood-pressure reading, without diagnosis of hypertension; E55.9 Vitamin D deficiency, unspecified; J45.20 Mild intermittent asthma, uncomplicated; F11.11 Opioid abuse, in remission; G25.81 Restless legs syndrome; F41.9 Anxiety disorder, unspecified; Z79.899 Other long term (current) drug therapy | CPT/HCPCS: 96127 ==

== ENCOUNTER 2025-01-05 15:59 | Outpatient (REF) | payer OTHER, SELFPAY ==
[2025-01-05 16:12] LABS: MANUAL DIFF FLAG NO
[2025-01-05 17:14] LABS: Hematocrit 44.4 % (42.0-52.0); Hemoglobin 15.2 g/dl (14.0-18.0); Imm Gran Abs Auto 0.04 X10*3/uL (0.00-0.03); Imm Gran Pct Auto 0.4 % (0.0-0.4); Lymphocytes Absolute Auto 2.4 X10*3/uL (1.2-4.9); Mean Corpuscular HGB Conc 34.2 g/dl (31.0-36.0); Mean Corpuscular Hemoglobin 32.4 pg (27.0-33.0); Mean Corpuscular Volume 94.7 fL (80.0-98.0); NRBC Abs Auto 0.000 X10*3/uL (0.0-0.012); NRBC Pct Auto 0.0 /100WBC (0.0-0.2); Platelet Count 482 X10*3/uL (160-400); Red Blood Count 4.69 X10*6/uL (4.60-5.80); White Blood Count 9.2 X10*3/uL (4.8-10.8)
[2025-01-05 17:19] LABS: Appearance Urine Clear; Glucose Urine UA Negative (Negative); PH 6.0 (5.0-9.0); Specific Gravity - Urine 1.025 (1.005-1.025)
[2025-01-05 18:12] LABS: Alanine Aminotransferase 27 U/L (0-40); Albumin Level 4.7 g/dL (3.5-5.0); Alkaline Phosphatase 56 U/L (39-117); Anion Gap 14 (12-20); Aspartate Amino Transferase 29 U/L (5-37); Blood Urea Nitrogen 21 mg/dL (9-16); Calcium 9.7 mg/dL (8.4-10.2); Carbon Dioxide 29 mmol/L (22-29); Chloride 103 mmol/L (96-108); Cholesterol 238 mg/dL (<200); Estimated Glomerular Filt Rate > 60; HDL Cholesterol 57 mg/dL (>40); Potassium 4.6 mmol/L (3.3-5.1); Sodium 141 mmol/L (135-145); Total Protein 7.4 g/dL (6.5-8.0); Triglycerides 97 mg/dL (<150)
== END 2025-01-05 16:00 | disposition home or self-care (01) ==
LOC: HO.LAB 15:59
PROVIDERS: PCP Internal Medicine; Visit Provider Internal Medicine
DX: R30.0 Dysuria (principal); E78.00 Pure hypercholesterolemia, unspecified; D64.9 Anemia, unspecified; E55.9 Vitamin D deficiency, unspecified
CPT/HCPCS: 36415; 80053; 80061; 81003; 82306; 85025

== ENCOUNTER 2025-01-06 10:45 | Outpatient (AMB) | payer OTHER, SELFPAY ==
[2025-01-06 10:56] VITALS: BP 120/90; PULSE 93; O2SAT 98; BMI 25.1
--- NOTE | 2025-01-06 10:56 | MHC.PC.OV ---
Vital Signs 01/06/25 10:56 Height 5 ft 7 in Weight 160 lb 8 oz BMI 25.1 BP 120/90 H Blood Pressure Location Lt brachial Position Sitting Pulse 93 Pulse Source Pulse Oximeter Pulse Oximetry (%) 98 Oxygen Delivery Method Room Air Intake Visit Reasons: hyperlipidemia, elevated BP, asthma, anxiety Detacker Required: No Accompanied by: Self / Same As Patient Allergies No Known Allergies Allergy (Verified 01/06/25 11:38) Medication List - Last Reconciled 01/06/25 by Naeem Bird MD albuterol sulfate 90 mcg/actuation 2 puffs inhalation Q6H PRN clonidine HCl 0.1 mg PO BEDTIME 90 days fluoxetine 20 mg PO DAILY 90 days ibuprofen-diphenhydramine HCl 200-25 mg (Ibuprofen PM) 1 cap PO BEDTIME PRN ropinirole 0.25 mg PO BEDTIME 30 days Tobacco use date assessed: 01/06/25 Dental Screening Dental Screen Date: 01/06/25 Did you have a dental visit in the last 12 months?: No Did you have a dental problem in the last 6 months where you did not have access to dental care?: No Was dental information given to patient?: Patient has dentist HPI hyperlipidemia, elevated BP, asthma, anxiety HPI Details Patient comes in today for his follow up visit States that he feels okay States that he has been working out regularly and has been drinking a lot of protein shakes and is happy that he has lost some weight since his last visit He denies any headaches or dizziness Denies any chest pains, no increased SOB No nausea/vomiting, no abdominal pain No change in bowel habits noted Reports that his restless legs symptoms at night have been well-controlled so far with the Ropinirole Rx that we started him on at his last visit Needs his Vitamin D3 Rx refilled He had his follow up labs done yesterday - to discuss his results [facility] Medical History Vitamin D deficiency Pure hypercholesterolemia History of opioid abuse Anxiety Asthma Surgical History History of lung surgery History of facial surgery Family History Father Hepatitis C Liver failure Mother Anxiety and depression Smoker COPD (chronic obstructive pulmonary disease) Social History Housing: House Patient Tobacco Use Status: Former Tobacco user e-Cigarette/Vaping Use: Never Used service: No Current occupational status: employed and other (Self emplyed) Cognitive needs: No Hearing needs: No Vision needs: No Questionnaire PHQ-9 Over the last 2 weeks, how often have you been bothered by any of the following problems? 1. Little interest or pleasure in doing things: not at all 2. Feeling down, depressed, or hopeless: not at all 3. Trouble falling or staying asleep, or sleeping too much: nearly every day 4. Feeling tired or having little energy: not at all 5. Poor appetite or overeating: not at all 6. Feeling bad about yourself - or that you are a failure or have let yourself or your family down: not at all 7. Trouble concentrating on things, such as reading the newspaper or watching television: not at all 8. Moving or speaking so slowly that other people could have noticed. Or the opposite - being so fidgety or restless that you have been moving around a lot more than usual: not at all 9. Thoughts that you would be better off or of hurting yourself in some way: not at all Total score: 3 Depression Screening Interpretation: Negative Depression Screening Done: Yes 56237 - PHQ-9 Billing: Yes Source: Developed by Drs. Remington Romero, Krystal Yu, Jose Martínez and colleagues, with an educational cristina from [employer]. Thrive Questionnaire Date Thrive assessed: 01/06/25 I am a: Patient What is your living situation today?: I have a steady place to live Within the past 12 months, did the food you bought not last and you didn't have the money to get more?: Often true Within the past 12 months, did you worry whether your food would run out before you got money to buy more?: Never true Do you have trouble paying for medicines?: No Do you have trouble getting transportation to medical appointments?: No Do you have trouble paying your heating and electricity bill?: No Do you have trouble taking care of your child, family member or friend?: No Do you have trouble with day-to-day activities such as bathing, preparing meals, shopping, managing finances, etc.?: No Are you currently unemployed and looking for a job?: No Are you interested in more education?: No Please select the resources that you would like help with: None Currently or been in a relationship where the following occur: No concerns reported THRIVE Score: 1 AUDIT C Alcohol Use Questionnaire (AUDIT-C) 1. How often do you have a drink containing alcohol?: Never 3. How often do you have six or more drinks on one occasion?: Never Total Score: 0 Score Reviewed/Action Taken: Yes DASIA-7 AMB Questionnaire DASIA-7 Date DASIA - 7 assessed: 01/06/25 Feeling nervous, anxious, or on edge: 1 = Several days Not being able to stop or control worryin = Several days Worrying too much about different things: 1 = Several days Trouble relaxin = Several days Being so restless that it is hard to sit still: 1 = Several days Becoming easily annoyed or irritable: 0 = Not at all Feeling afraid as if something awful might happen: 0 = Not at all Total DASIA-7 score (0-4 normal; 5-9 mild; 10-14 moderate; 15-21 severe): 5 Source: Developed by Drs. Remington Romero, Krystal Yu, Jose Martínez and colleagues, with an educational cristina from [employer]. Review of Systems Const Denies chills, Denies fatigue, Denies fever(s) and Denies headache(s) ENT Denies dysphagia, Denies dizziness, Denies otalgia, Denies headache(s), Denies neck pain, Denies odynophagia and Denies sore throat Card Denies chest pain, Denies irregular heart rhythm, Denies palpitations and Denies dyspnea Resp Denies chest congestion, Denies cough and Denies dyspnea GI Denies abdominal pain, Denies constipation, Denies dysphagia, Denies heartburn, Denies diarrhea, Denies nausea, Denies odynophagia and Denies vomiting Denies difficulty urinating, Denies dysuria and Denies urinary frequency Musc Denies back pain, Denies arthralgias (but (+) left shoulder discomfort at times) and Denies neck pain Skin/Breast Denies rash Neuro Denies dizziness, Denies headache(s), Reports restless legs (mostly at night - better controlled with Ropinirole Rx) and Denies paresthesias Endo Denies fatigue and Denies palpitations Physical exam (Primary Care) Vital Signs: Last Vital Signs Pulse 93 01/06/25 10:56 BP 120/90 H 01/06/25 10:56 Pulse Ox 98 01/06/25 10:56 Oxygen Delivery Method Room Air 01/06/25 10:56 BMI result Body Mass Index 25.1 Tobacco/Smoking Status: Tobacco use Status Tobacco use date assessed 01/06/25 01/06/25 11:06 Patient Tobacco Use Status Former Tobacco user 01/06/25 11:06 e-Cigarette/Vaping Use Never Used 01/06/25 11:06 PHQ-9: PHQ-9 Score PHQ-9: Total score 3 01/06/25 11:06 Depression Screening Interpretation: Negative Thrive Assessment: Date of Thrive Assessment Date Thrive assessed 01/06/25 01/06/25 11:06 Currently or been in a relationship where the following occur: No concerns reported Const General: no acute distress and alert HENMT Ears: TM's normal bilaterally and EAC's normal Throat: Yes posterior oropharynx normal and Yes tonsils normal (no TP congestion) Neck Neck: Yes supple and No lymphadenopathy Thyroid: Thyroid normal Resp Auscultation: clear to auscultation bilaterally, no rales and no wheezes Cardio Rate: regular rate Rhythm: regular rhythm Heart sounds: no murmurs GI Palpation (GI): Soft to palpation and nontender Auscultation: normal bowel sounds General: Yes no CVA tenderness Back/Spine/Pelvis Back: no CVA tenderness Skin Rashes: no rashes Extrem General: Yes no clubbing, cyanosis or edema Left upper extremity: shoulder/upper arm Details: tenderness (mild - more of a discomfort often after working out) Location: of the A-C joint Results Reviewed Results Reviewed: Laboratory Tests 01/05/25 01/05/25 16:04 16:10 WBC 9.2 Hgb 15.2 Hct 44.4 Plt Count 482 H Sodium 141 Potassium 4.6 Creatinine 1.14 Estimated GFR > 60 Fasting Glucose 83 Calcium 9.7 D AST 29 ALT 27 Triglycerides 97 Cholesterol 238 H LDL Cholesterol, Calc 162 H HDL Cholesterol 57 25-OH Vitamin D Total 47.2 Ur Specific [place] 1.025 Urine Protein Negative Urine Glucose (UA) Negative Urine Blood Negative Urine Nitrite Negative Ur Leukocyte Esterase Negative Coding Level of Care Code Est Pt Level 4 (67038) Diagnoses Pure hypercholesterolemia E78.00 Elevated blood pressure reading R03.0 Mild intermittent asthma without complication J45.20 Asthma severity: mild Asthma persistence: intermittent Asthma complication type: uncomplicated Vitamin D deficiency E55.9 History of opioid abuse F11.11 Restless legs G25.81 Anxiety F41.9 Additional Codes PHQ-9 - 95721 - PHQ-9 Billing: Yes ([id number]) Assessment & Plan Assessment & Plan (1) Pure hypercholesterolemia: Code(s): E78.00 - Pure hypercholesterolemia, unspecified Category: Medical Plan: Results of his labs done yesterday reviewed and discussed with patient - he is advised that his cholesterol level, particularly his LDL cholesterol, has gone up significantly from previous Reinforced low cholesterol diet - as patient does not know where he is getting the high cholesterol from his diet, will rprovide him with a low cholesterol diet sheet/info from the office today to help him try to figure this out Have advised him that if he cannot get his cholesterol level(s) to goal with diet modification alone, then we will likely need to start him on Rx to help lower his numbers (patient did mention that he does have a family Hx of high cholesterol) Will recheck his labs and fasting lipids in 4 months for follow up (2) Elevated blood pressure reading: Code(s): R03.0 - Elevated blood-pressure reading, without diagnosis of hypertension Category: Medical Plan: His BP is still elevated today although it is slightly lower than before - have advised patient again that his systolic BP should be around 120 mm or lower to be considered normal Reinforced low sodium diet Patient is still drinking some high protein shakes and body-building supplements - he has been advised him that these may contain ingredients that can affect his blood pressure so he needs to look at these more closely before continuing on them He is reminded to continue monitoring his blood pressure regularly (3) Asthma: Code(s): J45.909 - Unspecified asthma, uncomplicated Category: Medical Qualifiers: Asthma severity: mild Asthma persistence: intermittent Asthma complication type: uncomplicated Qualified Code(s): J45.20 - Mild intermittent asthma, uncomplicated Plan: Controlled Continue Albuterol HFA 1 to 2 inhalations Q 6 hours PRN (4) Vitamin D deficiency: Code(s): E55.9 - Vitamin D deficiency, unspecified Category: Medical Plan: Continue Vitamin D3 1000 units QD - Rx refilled (5) History of opioid abuse: Code(s): F11.11 - Opioid abuse, in remission Category: Medical Plan: He was on Suboxone 4-1 mg 0.25 film SL QD but states that he has been able to wean himself off Suboxone a few months ago and has not had any problems/symptoms so far Follow up with [facility] as scheduled/as needed (6) Restless legs: Code(s): G25.81 - Restless legs syndrome Category: Medical Plan: Continue Ropinirole 0.25 mg Q HS PRN - patient states that his leg symptoms have improved a lot with his Rx (7) Anxiety: Code(s): F41.9 - Anxiety disorder, unspecified Category: Medical Plan: Continue Fluoxetine 20 mg QD States that he also stopped taking his Clonazepam 0.25 mg a while ago and has not had any problems so far without it Follow up with psychiatry as scheduled Plan Follow up in 4 months Orders: Orders Comprehensive [place]. Panel Fast 4 Months E78.00 - Pure hypercholesterolemia, unspecified Complete Blood Count Auto Diff 4 Months D64.9 - Anemia, unspecified TSH reflex Free T4 4 Months E78.00 - Pure hypercholesterolemia, unspecified Lipid Panel 4 Months E78.00 - Pure hypercholesterolemia, unspecified UA CC w/rflx Micro + Cult 4 Months R30.0 - Dysuria Medications: Refilled cholecalciferol (vitamin D3) 25 mcg PO DAILY 90 caps 3RF 90 days E55.9 - Vitamin D deficiency, unspecified
== END 2025-01-06 11:47 | disposition home or self-care (01) ==
LOC: HO.HMCH 10:45
PROVIDERS: PCP Internal Medicine; Visit Provider Internal Medicine
DX: E78.00 Pure hypercholesterolemia, unspecified (principal); R03.0 Elevated blood-pressure reading, without diagnosis of hypertension; F11.11 Opioid abuse, in remission; J45.20 Mild intermittent asthma, uncomplicated; E55.9 Vitamin D deficiency, unspecified; G25.81 Restless legs syndrome; F41.9 Anxiety disorder, unspecified

== ENCOUNTER → 2025-01-06 10:45 | Outpatient (BNVA) | payer OTHER, SELFPAY | PROVIDERS: PCP Internal Medicine; Visit Provider Internal Medicine | DX: J45.20 Mild intermittent asthma, uncomplicated (principal); E78.00 Pure hypercholesterolemia, unspecified; R03.0 Elevated blood-pressure reading, without diagnosis of hypertension; E55.9 Vitamin D deficiency, unspecified; F11.11 Opioid abuse, in remission; G25.81 Restless legs syndrome; F41.9 Anxiety disorder, unspecified; D61.9 Aplastic anemia, unspecified; R30.0 Dysuria | CPT/HCPCS: 96127 ==